=== PATIENT | female | born 1975 | race American Indian/Alaskan Native ===

== ENCOUNTER 2016-08-27 12:43 | Outpatient (CLI) | payer MEDICAID ==
--- NOTE | 2016-08-27 16:39 | Mammography Report ---
BILATERAL DIGITAL SCREENING MAMMOGRAM WITH CAD:08/27/16 CLINICAL: Baseline screening. COMPARISON:None. FINDINGS: The breasts are heterogeneously dense, which may obscure small masses. A large area of asymmetric density in the posterior left breast on both views requires additional imaging. No architectural distortion or suspicious calcifications. IMPRESSION: Left asymmetry requiring further workup. BI-RADS CATEGORY: 0 -- Needs Additional Imaging RECOMMENDATION: Recall for left ML and spot magnification views and left breast ultrasound if needed. BI-RADS MAMMOGRAPHIC CODES: 0 = Needs additional imaging evaluation; 1 = Negative; 2 = Benign; 3 = Probably benign; 4 = Suspicious; 5 = Malignant; 6 = Known biopsy-proven malignancy COMMENT: 1. Dense breast tissue, i.e., adenosis, fibrocystic changes, etc., may obscure an underlying neoplasm. 2. Approximately 10% of cancers are not detected with mammography. 3. A negative mammography report should not delay biopsy if a clinically suspicious mass is present.
== END 2016-08-27 12:44 | disposition home or self-care (01) ==
LOC: SPVWC 12:43
PROVIDERS: ATTEND Obstetrics & Gynecology
DX: Z12.31 Encounter for screening mammogram for malignant neoplasm of breast (principal)
CPT/HCPCS: 77067; G0202

== ENCOUNTER 2016-10-08 11:10 | Outpatient (CLI) | payer MEDICAID ==
--- NOTE | 2016-10-08 12:12 | Mammography Report ---
LEFT DIGITAL DIAGNOSTIC MAMMOGRAM : 10/08/16 11:10:00 CLINICAL: Recalled for asymmetry. COMPARISON:08/27/16 screening FINDINGS: ML and spot magnification MLO and CC views were performed. A large area of global asymmetry persists in the outer breast requires evaluation with ultrasound. IMPRESSION: Global asymmetry of the left breast. BI-RADS CATEGORY: 0--Needs Additional Imaging RECOMMENDATION: Return for a global left breast ultrasound. ACR BI-RADS MAMMOGRAPHIC CODES: 0 = Needs additional imaging evaluation; 1 = Negative; 2 = Benign; 3 = Probably benign; 4 = Suspicious; 5 = Malignant; 6 = Known biopsy-proven malignancy COMMENT: 1. Dense breast tissue, i.e., adenosis, fibrocystic changes, etc., may obscure an underlying neoplasm. 2. Approximately 10% of cancers are not detected with mammography. 3. A negative mammography report should not delay biopsy if a clinically suspicious mass is present. COMMENT: Patient follow-up letters are generated via our [employer] application.
== END 2016-10-08 11:11 | disposition home or self-care (01) ==
LOC: SPVWC 11:10
PROVIDERS: ATTEND Obstetrics & Gynecology
DX: N64.89 Other specified disorders of breast (principal)
CPT/HCPCS: G0206-LT

== ENCOUNTER 2016-10-23 10:27 | Outpatient (CLI) | payer MEDICAID ==
--- NOTE | 2016-10-23 11:22 | Ultrasound Report ---
LEFT BREAST ULTRASOUND: 10/23/16 10:27:00 CLINICAL: Left asymmetry at screening. COMPARISON: 08/27/16 and 10/08/16 mammograms. FINDINGS: Ultrasound of the left breast(including all four quadrants and the retroareolar area) was performed and demonstrated no mass or shadowing to correlate with the mammographic asymmetry. IMPRESSION: Probably benign left parenchymal asymmetry with a negative ultrasound. BI-RADS 3 - - Probably Benign RECOMMENDATION: Six month followup left mammogram and left breast ultrasound if needed.
== END 2016-10-23 10:28 | disposition home or self-care (01) ==
LOC: SPVWC 10:27
PROVIDERS: ATTEND Obstetrics & Gynecology
DX: N64.89 Other specified disorders of breast (principal); R92.8 Other abnormal and inconclusive findings on diagnostic imaging of breast